=== PATIENT | male | born 1955 | race Caucasian/White ===

== ENCOUNTER 2023-03-17 11:57 | Emergency (ER) | payer MEDICARE, MEDICAID ==
[~2023-03-17] VITALS: Ht 170.2 cm; Wt 60.2 kg
[2023-03-17 13:08] LABS: ALANINE AMINOTRANSFERASE 24 U/L (12-78); ALBUMIN 4.2 G/DL (3.4-5.0); ALBUMIN/GLOBULIN RATIO 1.3 (1.1-1.5); ALKALINE PHOSPHATASE 105 IU/L (46-116); ANION GAP 17 (8-16); ASPARTATE AMINO TRANSFERASE 35 U/L (10-37); BILIRUBIN,TOTAL 0.7 MG/DL (0.1-1.0); BLOOD UREA NITROGEN 21 MG/DL (7-18); BUN/CREATININE RATIO 21.6 (10.0-20.0); CHLORIDE 99 MMOL/L (99-107); CREATININE 0.97 MG/DL (0.60-1.10); GLUCOSE 81 MG/DL (70-104); POTASSIUM 3.5 MMOL/L (3.5-5.1); SODIUM 136 MMOL/L (135-145); TOTAL CARBON DIOXIDE 20.3 MMOL/L (24-32); TOTAL PROTEIN 7.5 G/DL (6.4-8.2); eGFR 77 ML/MIN
[2023-03-17 13:12] LABS: BASOPHILS # (AUTO) 0.1 X10'3 (0-0.2); BASOPHILS % (AUTO) 1.8 % (0-1); EOSINOPHILS % (AUTO) 0.7 % (0-6); HEMATOCRIT 41.2 % (42.0-52.0); HEMOGLOBIN 13.5 g/dl (14.0-17.9); LYMPHOCYTES # (AUTO) 1.4 X10'3 (1.1-4.8); LYMPHOCYTES % (AUTO) 18.9 % (21-51); MEAN CORPUSCULAR HEMOGLOBIN 27.8 PG (27.0-31.0); MEAN CORPUSCULAR HGB CONC 32.9 g/dL (33.0-36.5); MEAN CORPUSCULAR VOLUME 84.6 FL (78-98); MEAN PLATELET VOLUME 7.9 FL (7.4-10.4); MONOCYTES # (AUTO) 0.5 X10'3 (0-0.9); MONOCYTES % (AUTO) 6.4 % (2-12); NEUTROPHILS # (AUTO) 5.3 X10'3 (1.8-7.7); NEUTROPHILS % (AUTO) 72.2 % (42-75); PLATELET COUNT 205 X10'3 (140-440); RED BLOOD COUNT 4.87 X10'6 (4.70-6.10); RED CELL DISTRIBUTION WIDTH 20.5 % (11.5-14.5); WHITE BLOOD COUNT 7.4 X10'3 (4.5-11.0)
[2023-03-17] MEDS ORDERED: dexamethasone sod phosphate 10mg/ml inj IV STA (13:37)
[2023-03-17 13:39] LABS: ETHANOL 0.098 GM/DL (0.0-0.010)
[2023-03-17] MEDS ORDERED: ketorolac tromethamine 15mg/ml inj. IV ONE (13:40)
[2023-03-17] MEDS ORDERED: ketorolac trometh. 30mg/ml inj. IV ONE (13:40)
[2023-03-17] MEDS ORDERED: oxyCODONE/APAP 5-325mg tablet PO ONE (13:40)
[2023-03-17] MEDS ORDERED: normal saline 1000ML IV soln IVB ONE (13:40)
[2023-03-17 13:53] LABS: MONOTEST NEGATIVE (Neg)
[2023-03-17 13:57] LABS: ANISOCYTOSIS 3+; PLATELET ESTIMATE NORMAL
--- NOTE | 2023-03-17 14:08 | NUR ---
assisting RN with pt care, 1st liter NS infusing w/o. Pt stated he lives at [address] and will need a taxi ride back.
[2023-03-17 15:27] LABS: CLARITY,URINE CLEAR (Clear); COLOR,URINE YELLOW (Yellow); GLUCOSE, URINE NEGATIVE (Neg); KETONES,URINE TRACE mg/dl (Neg); LEUKOCYTE ESTERASE ,URINE NEGATIVE (Neg); NITRITES, URINE NEGATIVE (Neg); OCCULT BLOOD,URINE NEGATIVE (Neg); PROTEIN,URINE NEGATIVE (Neg); UROBILINOGEN,URINE 0.2 E.U/dL (0.2-1.0)
[2023-03-17 15:32] LABS: UA COLLECTION TYPE CLN CATCH MIDSTREAM; URINE AMPHETAMINE SCREEN NEGATIVE (Neg); URINE BARBITUATE SCREEN NEGATIVE (Neg); URINE BENZODIAZEPINES SCREEN NEGATIVE (Neg); URINE CANNABINOID SCREEN POSITIVE (Neg); URINE COCAINE SCREEN NEGATIVE (Neg); URINE METHADONE SCREEN NEGATIVE (Neg); URINE OPIATE SCREEN NEGATIVE (Neg); URINE PHENCYCLIDINE SCREEN NEGATIVE (Neg)
--- NOTE | 2023-03-17 16:12 | NUR ---
ETA 15 MINS FOR [employer]
[2023-03-17] MEDS ORDERED: DOXY100C76 PO ×3 (16:16→17:40)
[2023-03-17] MEDS ORDERED: PRED20TA PO ×3 (16:16→17:40)
[2023-03-17] MEDS ORDERED: CEPH250T PO ×3 (16:16→17:40)
[2023-03-17 16:41] VITALS: BP 112/62
== END 2023-03-17 16:59 | disposition home or self-care (01) ==
LOC: ER 11:58
DX: K11.20 Sialoadenitis, unspecified (principal); E78.00 Pure hypercholesterolemia, unspecified; I10 Essential (primary) hypertension; J44.9 Chronic obstructive pulmonary disease, unspecified; I11.9 Hypertensive heart disease without heart failure; Z79.899 Other long term (current) drug therapy
CPT/HCPCS: 36415; 71045; 80053; 80305; 80320; 81003; 83605; 84145; 85008; 85025; 86308; 87040; 96374; 96375; 99284; J1100; J1885; J7030

== ENCOUNTER 2023-10-28 13:24 | Outpatient (CLI) | payer MEDICARE, MEDICAID ==
[~2023-10-28 13:24] MED LIST: CEPH250T PO; DOXY100C76 PO; PRED20TA PO
== END 2023-10-28 23:59 | disposition home or self-care (01) ==
LOC: RAD 13:24
PROVIDERS: ATTEND Registered Nurse Gerontology
DX: C85.89 Other specified types of non-Hodgkin lymphoma, extranodal and solid organ sites (principal); R47.1 Dysarthria and anarthria; R13.12 Dysphagia, oropharyngeal phase; Z85.89 Personal history of malignant neoplasm of other organs and systems
CPT/HCPCS: 74230